=== PATIENT | female | born 1965 | race Caucasian/White ===

== ENCOUNTER → 2018-02-18 | Outpatient (CLI) | payer OTHER ==
--- NOTE | 2018-02-27 11:30 | MM ---
Reason for exam: screening (asymptomatic). Last mammogram was performed 3 years and 1 month ago. History: Family history of breast cancer in mother at age 60. MG Screening Mammo w CAD Bilateral CC and MLO view(s) were taken. Prior study comparison: January 28, 2015, bilateral MG screening mammo w CAD. June 21, 2012, mammogram, performed at [facility]. There are scattered fibroglandular densities. There is a benign-appearing oval circumscribed stable right upper inner quadrant posterior depth mass back to 2014. No suspicious abnormality. No significant new finding since 2014. ASSESSMENT: Benign, BI-RAD 2 RECOMMENDATION: Routine screening mammogram of both breasts in 1 year.
== END | disposition home or self-care (01) ==
LOC: RADMAMWWP 07:57
PROVIDERS: ATTEND Family Medicine
DX: Z12.31 Encounter for screening mammogram for malignant neoplasm of breast (principal)
CPT/HCPCS: 77067

== ENCOUNTER 2019-03-08 19:47 | Emergency (ER) | payer BC, OTHER ==
[2019-03-08 20:03] VITALS: BP 126/85; PULSE 69; TEMP 97.8
[2019-03-08] MEDS ORDERED: Acetaminophen-Codeine 300-30mg TAB PO STA (20:48)
[2019-03-08] MEDS ORDERED: ACET/COD 300 MG/30 MG STARTER PACK 6 TAB BTL PO STA (20:48)
[2019-03-08 21:16] VITALS: RESP 16
--- NOTE | 2019-03-08 21:22 | XR ---
EXAMINATION TYPE: XR foot limited RT DATE OF EXAM: 03/08/2019 COMPARISON: NONE HISTORY: Pain and swelling TECHNIQUE: 2 views FINDINGS: The metatarsals appear intact. There are no erosions. There is no subluxation. I see no fra cture of the forefoot. There are moderate-sized plantar and Achilles calcaneal spurs. IMPRESSION: Calcaneal spurring. No fracture seen of the forefoot.
--- NOTE | 2019-03-08 21:24 | XR ---
EXAMINATION TYPE: XR ankle complete RT DATE OF EXAM: 03/08/2019 COMPARISON: NONE HISTORY: Pain and swelling TECHNIQUE: 3 views FINDINGS: There is soft tissue swelling over the lateral malleolus. There is transverse fracture of t he distal fibula. There is some osteosclerosis at the tip of the distal fibula. Ankle mortise is reyna omic. There are moderate-sized plantar and Achilles calcaneal spurs. IMPRESSION: Fracture of the lateral malleolus. Fracture could be subacute. Moderate lateral soft tiss ue swelling.
--- NOTE | 2019-03-08 21:25 | XR ---
EXAMINATION TYPE: XR tibia fibula RT DATE OF EXAM: 03/08/2019 COMPARISON: NONE HISTORY: Pain and swelling TECHNIQUE: 4 views FINDINGS: There is transverse fracture of the distal fibula. There is 1 cm distal fragment. There is no displacement. There is lateral soft tissue swelling at the ankle. The knee joint appears intact. T here is spurring on the patella. There is no sign of knee joint effusion. Tibia appears intact. IMPRESSION: Transverse fracture of the distal fibula. Margins are slightly irregular and this could b e subacute fracture. There is moderate lateral soft tissue swelling at the ankle.
--- NOTE | 2019-03-08 21:54 | ED ---
General Adult HPI - General Chief complaint: Extremity Injury, Lower Stated complaint: ankle pain Time Seen by Provider: 03/08/19 20:06 Source: patient, RN notes reviewed, old records reviewed Mode of arrival: wheelchair Limitations: no limitations - History of Present Illness Initial comments: 53-year-old female patient with past history of previous orthopedic surgery to right ankle and 2014 presents to ED for chief complaint right ankle injury. Patient port that she was walking a dog outside when she stumbled, suffering a right ankle inversion injury. Patient reports pain at the lateral malleolus. Denies any trauma to head or neck or any other injury. Has not been ambulatory since injury. Systemic: Pt denies fatigue, fever/chills, rash. Pt denies weakness, night sweats, weight loss. Neuro: Pt denies headache, visual disturbances, syncope or pre-syncope. HEENT: Pt denies ocular discharge or irritation, otalgia, rhinorrhea, pharyngitis or notable lymphadenopathy. Cardiopulmonary: Pt denies chest pain, SOB, heart palpitations, dyspnea on exertion. Abdominal/GI: Pt denies abdominal pain, n/v/d. : Pt denies dysuria, burning w/ urination, frequency/urgency. Denies new onset urinary or bowel incontinence. MSK: Pt denies loss of strength or function in extremities. Neuro: Pt denies new onset weakness, paresthesias. - Related Data Allergies Allergy/AdvReac Type Severity Reaction Status Date / Time erythromycin base Allergy Unknown Verified 03/08/19 21:21 Sulfa (Sulfonamide Allergy Unknown Verified 03/08/19 21:21 Antibiotics) Review of Systems ROS Statement: Those systems with pertinent positive or pertinent negative responses have been documented in the HPI. ROS Other: All systems not noted in ROS Statement are negative. Past Medical History Past Medical History: No Reported History History of Any Multi-Drug Resistant Organisms: None Reported Past Surgical History: Orthopedic Surgery Additional Past Surgical History / Comment(s): (R) ankle surgery Past Psychological History: No Psychological Hx Reported Smoking Status: Never smoker Past Alcohol Use History: Occasional Past Drug Use History: None Reported General Exam - General Exam Comments Initial Comments: Constitutional: NAD, AOX3, Pt has pleasant affect. HEENT: NC/AT, trachea midline, neck supple, no lymphadenopathy. Posterior pharynx non erythematous, without exudates. External ears appear normal, without discharge. Mucous membranes moist. Eyes PERRLA, EOM intact. There is no scleral icterus. No pallor noted. Cardiopulmonary: RRR, no murmurs, rubs or gallops, no JVD noted. Lungs CTAB in anterior and posterior bernal. No peripheral edema. Abdominal exam: Abdomen soft and non-distended. Abdomen non-tender to palpation in all 4 quadrants. Bowel sounds active in LLQ. No hepatosplenomegaly. No ecchymosis Neuro: CN II-XII grossly intact. No nuchal rigidity. No raccon eyes, no gonzalez sign, no hemotympanum. No cervical spinal tenderness. MSK: Edema and tenderness to the lateral malleolus, neurovascularly intact, patient able to wiggle toes, no other areas of tenderness in right lower extremity. Patient placed in posterior ankle splint, neurovascularly intact after splint placement. No posterior calf tenderness bilaterally, homans sign negative bilaterally. Posterior tibialis and radial pulse +2 bilaterally. Sensation intact in upper and lower extremities. Full active ROM in upper and lower extremities, 5/5 stregnth. Limitations: no limitations Course Vital Signs 03/08/19 03/08/19 20:00 21:16 Temperature 97.8 F Pulse Rate 69 Respiratory 18 16 Rate Blood Pressure 126/85 O2 Sat by Pulse 100 Oximetry Medical Decision Making - Medical Decision Making 53-year-old female patient with past history of previous orthopedic surgery to right ankle and 2015 presents to ED for chief complaint right ankle injury. Patient port that she was walking a dog outside when she stumbled, suffering a right ankle inversion injury. Patient reports pain at the lateral malleolus. Denies any trauma to head or neck or any other injury. Has not been ambulatory since injury. Patient vital signs are stable, afebrile. Physical exam displayed: Edema and tenderness to the lateral malleolus, neurovascularly intact, patient able to wiggle toes, no other areas of tenderness in right lower extremity. Patient placed in posterior ankle splint, neurovascularly intact after splint placement. Plain film of tibia-fibula ankle, foot displayed transverse fracture of distal fibula. Patient placed in a posterior ankle splint. He will be nonweightbearing, use crutches will follow-up with orthopedic consult tomorrow, return to ER if condition worsens. Case discussed with Dr. Burger. Disposition Clinical Impression: Fracture of distal fibula Disposition: HOME SELF-CARE Condition: Stable Instructions (If sedation given, give patient instructions): Ankle Fracture (ED) Additional Instructions: Continue to wear splint. Use crutches do not bear weight on right lower extremity. Follow-up with previously established orthopedic consult tomorrow. If unable to follow up with your prior orthopedic surgeon additional was provided. Follow-up with primary care provider in 1-2 days. Is patient prescribed a controlled substance at d/c from ED?: No Referrals: Tommy Kim MD [Primary Care Provider] - 1-2 days Rolan Redman MD [STAFF PHYSICIAN] - 1-2 days
== END 2019-03-08 22:00 | disposition home or self-care (01) ==
LOC: EC 19:47
DX: S82.831A Other fracture of upper and lower end of right fibula, initial encounter for closed fracture (principal); Z88.1 Allergy status to other antibiotic agents; Z88.2 Allergy status to sulfonamides; Z98.890 Other specified postprocedural states; X50.1XXA Overexertion from prolonged static or awkward postures, initial encounter; Y93.K1 Activity, walking an animal; Y92.89 Other specified places as the place of occurrence of the external cause
CPT/HCPCS: 29515; 99284

== ENCOUNTER 2020-01-20 21:54 | Emergency (ER) | payer BC ==
[2020-01-20] MEDS ORDERED: KETOROLAC 15 MG/ML 1 ML VIAL IM STA (22:42)
--- NOTE | 2020-01-20 23:00 | ED ---
Extremity Problem HPI - General Chief complaint: Extremity Problem,Nontraumatic Stated complaint: Left knee injury Time Seen by Provider: 01/20/20 22:21 Source: patient Mode of arrival: wheelchair Limitations: no limitations - History of Present Illness Initial comments: 54-year-old female presents to the emergency room for a chief complaint of left knee pain. Patient reports that she was walking her dog. She said her dog was pulling the leash as it is 100 pounds and she was having pain in the left knee. States her dog and another direction and she felt a sudden pain in the left knee. States it radiates up the left leg. Patient states it is very painful to bend her knee. Patient states it is painful to walk on it. This happened just prior to arrival. Patient has not taken any pain medication.Patient has no other complaints at this time including shortness of breath, chest pain, abdominal pain, nausea or vomiting, headache, or visual changes. - Related Data Allergies Allergy/AdvReac Type Severity Reaction Status Date / Time erythromycin base Allergy Unknown Verified 01/20/20 22:12 Sulfa (Sulfonamide Allergy Unknown Verified 01/20/20 22:12 Antibiotics) Review of Systems ROS Statement: Those systems with pertinent positive or pertinent negative responses have been documented in the HPI. ROS Other: All systems not noted in ROS Statement are negative. Past Medical History Past Medical History: No Reported History History of Any Multi-Drug Resistant Organisms: None Reported Past Surgical History: Orthopedic Surgery Additional Past Surgical History / Comment(s): (R) ankle surgery Past Psychological History: No Psychological Hx Reported Smoking Status: Never smoker Past Alcohol Use History: Occasional Past Drug Use History: None Reported General Exam Limitations: no limitations General appearance: alert, in no apparent distress Head exam: Present: atraumatic, normocephalic, normal inspection Eye exam: Present: normal appearance, PERRL, EOMI. Absent: scleral icterus, conjunctival injection, periorbital swelling ENT exam: Present: normal exam, mucous membranes moist Neck exam: Present: normal inspection, full ROM. Absent: tenderness, meningismus, lymphadenopathy Respiratory exam: Present: normal lung sounds bilaterally Cardiovascular Exam: Present: regular rate, normal rhythm, normal heart sounds. Absent: systolic murmur, diastolic murmur, rubs, gallop, clicks GI/Abdominal exam: Present: soft, normal bowel sounds. Absent: distended, tenderness, guarding, rebound, rigid Extremities exam: Present: tenderness (Tenderness to the anterior left knee as well as femur.), normal capillary refill (Capillary refill less than 2 seconds in the left lower extremity, DP pulse 2+.), other (Sensation intact left lower extremity.). Absent: full ROM (Patient has minimal flexion of the left knee secondary to pain, full extension.), pedal edema, joint swelling (No significant edema present in the left lower extremity including the left knee. No contusions.), calf tenderness (No calf tenderness.) Course Vital Signs 01/20/20 22:08 Temperature 98.3 F Pulse Rate 82 Respiratory 20 Rate Blood Pressure 135/78 O2 Sat by Pulse 100 Oximetry Medical Decision Making - Medical Decision Making 54-year-old patient presents for left knee pain after twisting wrong while walking her dog. Neurovascular status intact. Patient has limited flexion of the left knee. X-ray of the left knee shows a small joint effusion. No fracture. X-ray of the left femur shows no fracture seen. Patient was given Toradol which did help with her pain. Given joint effusion and pain with twisting motion there is concern for soft tissue injury of the left knee. Patient was placed in a knee immobilizer. Patient will be discharged home with Motrin and Tylenol 3. She will be referred to on-call orthopedics and will possibly need MRI. She will return here for any worsening symptoms. Disposition Clinical Impression: Knee pain, Joint effusion of knee Disposition: HOME SELF-CARE Condition: Good Instructions (If sedation given, give patient instructions): Knee Pain (ED) Additional Instructions: Please take Motrin and Tylenol for pain. Use knee immobilizer while awake and moving. Follow-up with orthopedics on Wednesday by calling in the morning. Alternate Motrin and Tylenol every 3 hours for pain as needed. If pain is severe take Tylenol 3. [address] or operate machinery while taking Tylenol 3 as this may make you drowsy. Return to the emergency room for any worsening symptoms. Is patient prescribed a controlled substance at d/c from ED?: No Referrals: Tommy Kim MD [Primary Care Provider] - 1-2 days Jh Uriostegui DO [Doctor of Osteopathic Medicine] - 1-2 days Time of Disposition: 23:46
--- NOTE | 2020-01-20 23:29 | XR ---
EXAMINATION TYPE: XR femur LT DATE OF EXAM: 01/20/2020 COMPARISON: NONE HISTORY: Pain TECHNIQUE: 4 views FINDINGS: There is mild spurring at the knee joint. There is spurring at the patellofemoral joint wit h joint space narrowing. I see no fracture nor dislocation. Hip joint is intact. IMPRESSION: Osteoarthritis in the left knee joint. No fracture seen.
--- NOTE | 2020-01-20 23:30 | XR ---
EXAMINATION TYPE: XR knee complete LT DATE OF EXAM: 01/20/2020 COMPARISON: NONE HISTORY: Knee pain TECHNIQUE: 3 views FINDINGS: There is mild spurring of the femoral and tibial condyles. There is narrowing and spurring at the patellofemoral joint. There is no fracture nor dislocation. There is small knee joint effusion . IMPRESSION: Osteoarthritis with small knee joint effusion. No fracture.
[2020-01-20] MEDS ORDERED: ACET/COD 300 MG/30 MG STARTER PACK 6 TAB BTL PO STA (23:48)
[2020-01-21 00:59] VITALS: BP 132/71; PULSE 86; RESP 18; TEMP 98.1
== END 2020-01-21 00:58 | disposition home or self-care (01) ==
LOC: EC 21:54
DX: M25.462 Effusion, left knee (principal); Z88.2 Allergy status to sulfonamides; Z88.1 Allergy status to other antibiotic agents
CPT/HCPCS: 73552; 73562; 99283; 96372; L1830 ×2; J1885

== ENCOUNTER → 2021-03-25 | Outpatient (CLI) | payer OTHER ==
--- NOTE | 2021-03-26 07:25 | US ---
EXAMINATION TYPE: US transvaginal DATE OF EXAM: 03/25/2021 COMPARISON: NONE CLINICAL HISTORY: N95.0 POSTMENOPAUSAL BLEEDING. Patient had episode of minimal spotting. 4 years post menopausal. TECHNIQUE: Transvaginal (TV). Date of LMP: 4 years prior EXAM MEASUREMENTS: Uterus: 6.3 x 2.2 x 3.7 cm Endometrial Stripe: 3mm Right Ovary: Obscured by overlying bowel gas Left Ovary: Obscured by overlying bowel gas Somewhat limited visualization due to overlying bowel gas. 1. Uterus: Anteverted, limited visualization 2. Endometrium: There appears to be a small amount of fluid in endocervical canal 3. Right Ovary: Obscured by overlying bowel gas 4. Left Ovary: Obscured by overlying bowel gas 5. Bilateral Adnexa: wnl 6. Posterior cul-de-sac: wnl IMPRESSION: Small amount of endocervical fluid. Otherwise unremarkable study.
== END | disposition home or self-care (01) ==
LOC: RADUSWWP 15:29
PROVIDERS: ATTEND Family Medicine
DX: N95.0 Postmenopausal bleeding (principal)
CPT/HCPCS: 76830

== ENCOUNTER 2021-03-28 08:19 | Emergency (ER) | payer OTHER ==
--- NOTE | 2021-03-28 09:21 | ED ---
General Adult HPI - General Chief complaint: Extremity Injury, Upper Stated complaint: Fall Time Seen by Provider: 03/28/21 08:25 Source: patient, RN notes reviewed, old records reviewed Mode of arrival: ambulatory Limitations: no limitations - History of Present Illness Initial comments: This is a 56-year-old female presents emergency Department complaining of right arm pain. Patient states he slipped on the ice and landed on her right shoulder. Patient denies any elbow pain and wrist pain or hand pain. Patient denies any head or neck. Patient denies any scapular pain patient denies any clavicle pain. Patient denies any chest or back pain. Patient denies any other injury at this time. - Related Data Previous Rx's Medication Instructions Recorded Ibuprofen [Motrin] 600 mg PO Q6HR PRN #20 tab 03/28/21 Allergies Allergy/AdvReac Type Severity Reaction Status Date / Time erythromycin base Allergy Rash/Hives Verified 03/28/21 11:39 Sulfa (Sulfonamide Allergy Rash/Hives Verified 03/28/21 11:39 Antibiotics) Review of Systems ROS Statement: Those systems with pertinent positive or pertinent negative responses have been documented in the HPI. ROS Other: All systems not noted in ROS Statement are negative. Past Medical History Past Medical History: No Reported History History of Any Multi-Drug Resistant Organisms: None Reported Past Surgical History: Orthopedic Surgery Additional Past Surgical History / Comment(s): (R) ankle surgery Past Psychological History: No Psychological Hx Reported Smoking Status: Never smoker Past Alcohol Use History: Occasional Past Drug Use History: None Reported General Exam - General Exam Comments Initial Comments: GENERAL Patient is well-developed and well-nourished. Patient is in mild distress. EYES Patient's pupils are equal and round. Extraocular motion is intact SKIN Unremarkable NEURO The patient is alert and oriented 3 PYSCH Patient has normal interpersonal interactions. MUSCULOSKELETAL Shoulder is tender anteriorly and laterally. There is no tenderness of the elbow wrist or hand. There is no tenderness of the scapula clavicle chest or back. Limitations: no limitations Course Vital Signs 03/28/21 03/28/21 08:23 10:31 Temperature 98 F Pulse Rate 70 63 Respiratory 20 18 Rate Blood Pressure 142/93 135/84 O2 Sat by Pulse 97 99 Oximetry Medical Decision Making - Medical Decision Making X-ray of the shoulder and humerus show no acute abnormality Disposition Clinical Impression: Strain of shoulder Disposition: HOME SELF-CARE Condition: Good Instructions (If sedation given, give patient instructions): Rotator Cuff Injury (ED) Prescriptions: Ibuprofen [Motrin] 600 mg PO Q6HR PRN #20 tab PRN Reason: For pain Is patient prescribed a controlled substance at d/c from ED?: No Referrals: Tommy Kim MD [Primary Care Provider] - 1-2 days Time of Disposition: 12:35
[2021-03-28 10:32] VITALS: RESP 18
[2021-03-28] MEDS ORDERED: HYDROmorphone 0.5 MG/0.5 ML SYRINGE IVP STA (10:32)
[2021-03-28] MEDS ORDERED: KETOROLAC 15 MG/ML 1 ML VIAL IM STA (10:33)
[2021-03-28] MEDS ORDERED: HYDROmorphone 0.5 MG/0.5 ML SYRINGE IM STA (10:54)
--- NOTE | 2021-03-28 11:54 | XR ---
EXAMINATION TYPE: XR shoulder complete RT DATE OF EXAM: 03/28/2021 COMPARISON: NONE HISTORY: Pain TECHNIQUE: Shoulder examined in 3 views FINDINGS: The humeral head articulates with the glenoid. The acromio-clavicular junction is normal. No acute fractures or dislocations are evident. A follow up study can be performed 7-10 days from acute trauma for continued pain. IMPRESSION: 1. Normal three-view right Shoulder
--- NOTE | 2021-03-28 12:30 | XR ---
EXAMINATION TYPE: XR humerus RT DATE OF EXAM: 03/28/2021 COMPARISON: None HISTORY: Trauma, pain TECHNIQUE: 2 view right humerus FINDINGS: No acute fractures or dislocations are evident. Soft tissues appear unremarkable. Joint spa sudha appear preserved IMPRESSION: 1. Normal 2 view right humerus
[2021-03-28] MEDS ORDERED: ACET/COD 300 MG/30 MG STARTER PACK 6 TAB BTL PO STA (12:35)
[2021-03-28 12:50] VITALS: BP 129/90; PULSE 62; TEMP 97.7
== END 2021-03-28 12:50 | disposition home or self-care (01) ==
LOC: EC 08:19
DX: S46.011A Strain of muscle(s) and tendon(s) of the rotator cuff of right shoulder, initial encounter (principal); Z88.1 Allergy status to other antibiotic agents; Z88.2 Allergy status to sulfonamides; W00.0XXA Fall on same level due to ice and snow, initial encounter
CPT/HCPCS: 96372; 73030; 73060; 99283; J1885; J1170; 99284

== ENCOUNTER → 2021-12-30 | Outpatient (CLI) | payer OTHER ==
--- NOTE | 2021-12-30 11:40 | MM ---
Reason for Exam: Screening (asymptomatic). Last mammogram was performed 3 year(s) and 10 month(s) ago. Patient History: Menarche at age 12. First Full-Term at age 26. Postmenopausal. Mother had breast cancer, age 60. Risk Values: Jeanette 5 year model risk: 2.5%. NCI Lifetime model risk: 14.9%. Prior Study Comparison: 06/21/2012 Screening Mammogram, [facility]. 01/28/2015 Bilateral Screening Mammogram, [facility]. 02/18/2018 Bilateral Screening Mammogram, [facility]. Tissue Density: The breast tissue is almost entirely fat. Findings: Analyzed By CAD. Benign-appearing bilateral axillary lymph nodes are redemonstrated. There is no suspicious new group of microcalcifications or new suspicious mass in either breast. Overall Assessment: Negative, BI-RAD 1 Management: Screening Mammogram of both breasts in 1 year. A clinical breast exam by your physician is recommended on an annual basis and results should be correlated with mammographic findings. Electronically signed and approved by: Salbador Velasquez M.D.
== END | disposition home or self-care (01) ==
LOC: RADMAMWWP 06:46
PROVIDERS: ATTEND Family Medicine
DX: Z12.31 Encounter for screening mammogram for malignant neoplasm of breast (principal); Z78.0 Asymptomatic menopausal state; Z80.3 Family history of malignant neoplasm of breast
CPT/HCPCS: 77063; 77067

== ENCOUNTER → 2024-05-11 | Outpatient (CLI) | payer BC ==
--- NOTE | 2024-05-11 08:10 | MM ---
Reason for Exam: Screening (asymptomatic). Last mammogram was performed 2 year(s) and 4 month(s) ago. Patient History: Menarche at age 12. First Full-Term at age 26. Postmenopausal. Mother had breast cancer, age 60. Risk Values: Jeanette 5 year model risk: 2.8%. NCI Lifetime model risk: 13.9%. Prior Study Comparison: 01/28/2015 Bilateral Screening Mammogram, [facility]. 02/18/2018 Bilateral Screening Mammogram, [facility]. 12/30/2021 Bilateral MG 3D screening mammo w/cad, [facility]. Tissue Density: There are scattered areas of fibroglandular density. Findings: Analyzed By CAD. There is no suspicious group of microcalcifications or new suspicious mass in either breast. Overall Assessment: Benign, BI-RAD 2 Management: Screening Mammogram of both breasts in 1 year. . Patient should continue monthly self-breast exams. A clinical breast exam by your physician is recommended on an annual basis. This exam should not preclude additional follow-up of suspicious palpable abnormalities. Note on Jeanette scores and lifetime risk: 1. A Jeanette score greater than 3% is considered moderate risk. If this is the case, consider specialist referral to assess eligibility for a risk reducing agent. 2. If overall lifetime risk for the development of breast cancer is 20% or higher, the patient may qualify for future screening with alternating mammogram and breast MRI. [facility], , 05/11/2024 8:07 AM. Electronically signed and approved by: Tommy Burnham M.D. [facility]
== END | disposition home or self-care (01) ==
LOC: RADMAMWWP 07:08
PROVIDERS: ATTEND Family Medicine
DX: Z12.31 Encounter for screening mammogram for malignant neoplasm of breast (principal); R92.323 Mammographic fibroglandular density, bilateral breasts; Z78.0 Asymptomatic menopausal state; Z80.3 Family history of malignant neoplasm of breast
CPT/HCPCS: 77063; 77067